=== PATIENT | male | born 2000 | race African-American/Black ===

== ENCOUNTER → 2021-01-12 | Outpatient (CLI) | payer OTHER ==
--- NOTE | 2021-01-12 15:03 | REP ---
INDICATION: LOW BACK PAIN, UNSPECIFIED COMPARISON: None. TECHNIQUE: AP, lateral, coned-down views of the lumbar spine. FINDINGS: Three views of the lumbosacral spine demonstrate satisfactory alignment and lordosis without acute fracture / compression injury or subluxation. IMPRESSION: 1. No acute fracture / compression injury or subluxation. 2. No degenerative changes. <Electronically signed by Hitesh Berumen > 01/12/21 1500
== END ==
LOC: M RAD 13:42
PROVIDERS: ATTEND Physician Assistant
DX: M54.50 Low back pain, unspecified (principal)